=== PATIENT | male | born 1960 | race American Indian/Alaskan Native ===

== ENCOUNTER 2018-07-15 12:55 | Emergency (ER) | payer BC ==
--- NOTE | 2018-07-15 13:14 | Emergency Department Report ---
Blank Doc - Documentation Documentation: This is a 57-year-old male that presents with left middle finger lac that occu rred today. STated is UTD with tetanus. This initial assessment/diagnostic orders/clinical plan/treatment(s) is/are subject to change based on patient's health status, clinical progression and re-assessment by fellow clinical providers in the ED. Further treatment and workup at subsequent clinical providers discretion. Patient/guardians urged not to elope from the ED as their condition may be serious if not clinically assessed and managed. Initial orders include: 1- Patient sent to [facility] for further evaluation and treatment
[2018-07-15] MEDS ORDERED: XYLOCAINE 1% MPF 5 mL INFILTRATI ONE (15:27)
--- NOTE | 2018-07-15 15:28 | Emergency Department Report ---
ED Laceration HPI - HPI Chief Complaint: Wound/Laceration Stated Complaint: LFT HAND INJURY/PAIN Time Seen by Provider: 07/15/18 13:12 Occurred When: Today Location: Upper Extremity (left 3rd distal finger) Severity: moderate Tetanus Status: Up to Date Laceration Symptoms: Yes Pain, No Foreign Body Sensation, No Numbness, No Weakness Other History: This is a 57-year-old -[place] female who presents with laceration to left third distal finger. Patient states he was cleaning out his garage at home when a metal broom handle broke and caught his finger around 1100 today. He reports a large amount of bleeding, numbness and tingling to the distal finger. Spouse states she applied Steri-Strips which did not control bleeding. ED Review of Systems ROS: Stated complaint: LFT HAND INJURY/PAIN Other details as noted in HPI Constitutional: denies: chills, fever Respiratory: denies: cough, shortness of breath, wheezing Cardiovascular: denies: chest pain, palpitations Gastrointestinal: denies: abdominal pain, nausea, diarrhea Skin: lesions (laceration to left 3rd distal finger). denies: rash Neurological: denies: headache, weakness, paresthesias Psychiatric: denies: anxiety, depression ED Past Medical Hx - Past Medical History Previous Medical History?: No - Surgical History Past Surgical History?: No - Social History Smoking Status: Current Every Day Smoker Substance Use Type: None - Medications Home Medications: Home Medications Medication Instructions Recorded Confirmed Last Taken Type Clindamycin [Clindamycin CAP] 300 mg PO Q8H #14 cap 07/15/18 Unknown Rx Ibuprofen [Motrin 800 MG tab] 800 mg PO Q8HR PRN #15 tablet 07/15/18 Unknown Rx Laceration Physical Exam - Exam General: Vital signs noted. No distress. Alert and acting appropriately. Wound Length (cm): 3 Laceration Location: Upper Extremity (3 cm irregular laceration into the dermis of distal volar phalanx, large amount of serosanguineous drainage, tenderness, mild swelling, full range of motion, neurologically intact) Laceration Exam: Yes Normal Distal CMS, No Foreign Body, No Exposed Tendon, Vessel, or Nerve, No Tendon Injury ED Course Vital Signs 07/15/18 13:13 Temperature 98.1 F Pulse Rate 74 Respiratory 16 Rate Blood Pressure 149/91 [Left] O2 Sat by Pulse 99 Oximetry - Laceration /Wound Repair Left Distal Palm Finger Wound Location: upper extremity (third distal phalanx) Wound Length (cm): 3 Wound's Depth, Shape: into muscle, irregular, flap, contused tissue Wound Explored: no foreign body removed Irrigated w/ Saline (ccs): 10 Betadine Prep?: Yes Anesthesia: 1% Lidocaine Volume Anesthetic (ccs): 3 Wound Repaired With: sutures Suture Size/Type: 4:0 Number of Sutures: 6 Layer Closure?: No Sterile Dressing Applied?: Yes ED Medical Decision Making - Medical Decision Making This is a 57 y.o. male presents with left 3rd distal digit laceration this morn ing. Patient examined by me. Patient is non-toxic appearing and stable. Physical examination is susceptible of cellulites of left hand. Laceration closed with 6 sutures, review note. Discharged home for outpatient treatment with bactrim and ibuprofen. Discussed ER care plan with patient. Patient agreed with plan. F/U with PCP. Critical care attestation.: If time is entered above; I have spent that time in minutes in the direct care of this critically ill patient, excluding procedure time. ED Disposition Clinical Impression: Cellulitis of finger of left hand Laceration of finger of left hand Qualifiers: Encounter type: initial encounter Finger: middle finger Damage to nail status: without damage Foreign body presence: without foreign body Qualified Code(s): S61.213A - Laceration without foreign body of left middle finger without damage to nail, initial encounter Disposition: DC-01 TO HOME OR SELFCARE Is pt being admited?: No Does the pt Need Aspirin: No Condition: Stable Instructions: Suture Care (ED), Laceration (ED) Additional Instructions: Take antibiotics as prescribed for the full course. Keep wound dry and clean for 48 hours. Avoid putting to much tension on wound site. Prop arm up on pillows to decrease swelling. Follow up with Primary Care Provider in 2-3 days. Have sutures removed in 7 days by primary care provider or in ER. Return to ER if red, swollen, foul discharge, or fever. Prescriptions: Clindamycin [Clindamycin CAP] 300 mg PO Q8H #14 cap Ibuprofen [Motrin 800 MG tab] 800 mg PO Q8HR PRN #15 tablet PRN Reason: Pain , Severe (7-10) Referrals: NANCY SAENZ MD [Primary Care Provider] - 3-5 Days [facility], [facility] [Provider Group] - 3-5 Days [facility] [Provider Group] - 3-5 Days Forms: Accompanied Note, Work/School Release Form(ED) Time of Disposition: 16:56
[2018-07-15 17:11] VITALS: BP 160/102
== END 2018-07-15 17:11 | disposition home or self-care (01) ==
LOC: ED 12:55
DX: S61.213A Laceration without foreign body of left middle finger without damage to nail, initial encounter (principal); L03.012 Cellulitis of left finger; F17.200 Nicotine dependence, unspecified, uncomplicated; W26.8XXA Contact with other sharp object(s), not elsewhere classified, initial encounter; Y93.E9 Activity, other interior property and clothing maintenance; Y92.094 Garage of other non-institutional residence as the place of occurrence of the external cause; Y99.8 Other external cause status
CPT/HCPCS: 99282